=== PATIENT | female | born 1965 | race Caucasian/White ===

== ENCOUNTER → 2016-10-16 | Outpatient (CLI) | payer OTHER ==
--- NOTE | ~2016-10-16 | PR ---
[place], [place] PROGRESS NOTE NAME: MARGIE LILLY [facility] #: [id number] UNIT #: [id number] ROOM: DOCTOR: NEMO Wade,ORALIA BIRTHDATE: [birth year] DOS: 10/16/2016 HBO THERAPY NOTE This is treatment #20. INDICATION: Osteoradionecrosis of the jaw. Treatment protocol is 2.5 SNOW with 90 minutes of oxygen and two 5-minute air breaks. Compression began at 1322. Treatment pressure was reached at 1333. Treatment length was 122 minutes. Decompression began at 1513 and ended at 1524. Vitals pre-HBO shows a blood pressure of 150/82, pulse of 84, respirations 16, temperature is 97.4. Post-HBO, the blood pressure is 172/90, pulse of 80, respirations 16, temperature 97.5. TEED scale is grade 0 bilaterally pre and post-HBO treatment. The patient tolerated the treatment well without adverse events. The patient had recent hardware removal vestibuloplasty on 10/10/2016. She has an NG tube in for nutrition and this is her first treatment after her recent surgery. I certify that I supervised this HBO treatment in accordance with Medicare guidelines. A trained emergency response team is readily available per hospital policies and procedures. Continue HBO therapy as ordered. Of note, the patient does have transient high blood pressure post-HBO treatment. We will continue to monitor this and she may need to have some mild blood pressure medication if this persists, although it is transient. We will continue to monitor carefully. ORALIA CHESTER MD CM:PNTRANS [id number] ORALIA CHESTER M.D. 10/17/16 0230 interface
== END ==
LOC: WOUNDCARE 08:14
DX: M27.2 Inflammatory conditions of jaws (principal)

== ENCOUNTER → 2016-10-17 | Outpatient (CLI) | payer OTHER ==
--- NOTE | ~2016-10-17 | PR ---
[place], [place] PROGRESS NOTE [id number] UNIT #: [id number] ROOM: DOCTOR: NEMO Wade,ORALIA BIRTHDATE: [birth year] DOS: 10/17/2016 This is treatment number 21. The protocol is 2.5 SNOW with 90 minutes of oxygen and two 5-minute air breaks. The indication is osteoradionecrosis of the jaw. Compression began at 1304. Treatment pressure was reached at 1315. Treatment length was 122 minutes. Decompression began at 1455 and ended at 1506. Compression rate down and decompression rate up was 2.0 PSI per minute. Vital pre-HBO shows a blood pressure of 134/66, pulse of 64, respirations 16, temperature is 97.5. Post-HBO, the blood pressure is 150/84, pulse of 80, respirations 16, temperature is 97.5. TEED scale is grade 0 bilaterally pre and post-HBO treatment. The patient tolerated the treatment well without adverse events. I certify that I supervised this HBO treatment in accordance with Medicare guidelines. A trained emergency response team is readily available per hospital policies and procedures. Continue HBO therapy as ordered. ORALIA CHESTER MD CM:PNTRANS [id number] ORALIA CHESTER M.D. 10/18/16 0314 interface
== END ==
LOC: WOUNDCARE 01:22
DX: M27.2 Inflammatory conditions of jaws (principal)

== ENCOUNTER → 2016-10-18 | Outpatient (CLI) | payer OTHER ==
--- NOTE | ~2016-10-18 | PR ---
[place], [place] PROGRESS NOTE NAME: MARGIE LILLY UNIT #: [id number] ROOM: DOCTOR: FELIX MCKENZIE DO BIRTHDATE: [birth year] DOS: 10/18/2016 HYPERBARIC PROCEDURE NOTE SUPERVISING PHYSICIAN: Felix Mckenzie DO SUBJECTIVE: The patient is scheduled for HBO treatment. The protocol is used for 90 minute treatment at 2.5 SNOW on 100% oxygen with both a 12 minute compression and decompression time interval with two 5-minute air breaks. Total treatment time 124 minutes. This is treatment #22. OBJECTIVE: VITAL SIGNS: Both pre and post vital signs were taken and reviewed and appeared stable. Exam completed pre and post-treatment. EARS: Canals clear. No evidence of blockage, edema, ear infection or barotraumas. NOSE: No rhinorrhea or bleeding. HEART: Regular. LUNGS: Clear to auscultation bilaterally. ASSESSMENT: 1. Osteoradionecrosis of jaw. 2. An uneventful hyperbaric oxygen treatment was completed. PLAN: The patient will continue current HBO treatment scheduled and protocol used. FELIX MCKENZIE DO CM:FRANCINE [phone] FELIX MCKENZIE DO 10/23/16 0348 interface
== END ==
LOC: WOUNDCARE 01:34
DX: M27.2 Inflammatory conditions of jaws (principal)

== ENCOUNTER → 2016-10-21 | Outpatient (CLI) | payer OTHER ==
--- NOTE | ~2016-10-21 | PR ---
[place], [place] PROGRESS NOTE NAME: MARGIE LILLY [facility] #: [id number] UNIT #: [id number] ROOM: DOCTOR: ORALIA CHESTER M.D. BIRTHDATE: [birth year] DOS: 10/21/2016 THIS IS AN HBO THERAPY NOTE This is treatment #23. The protocol is 2.5 SNOW with 90 minutes of oxygen and two 5-minute air breaks. Compression began at 1309. Treatment pressure was reached at 1321. Treatment length was 124 minutes. Decompression began at 1501 and ended at 1513. Treatment length was 124 minutes. Compression rate down and decompression rate up was 2.0 psi per minute. The indication was osteoradionecrosis of the jaw. This is treatment #23. The protocol is 2.5 SNOW with 90 minutes of oxygen and two 5-minute air breaks. OBJECTIVE: VITAL SIGNS: Pre-HBO shows a blood pressure of 160/82, pulse of 64, respirations 16, temperature 97.5. Post-HBO, the blood pressure is 154/90, pulse of 80, respirations 16, temperature is 97.4. TEED scale is grade 0 bilaterally pre and post-HBO treatment. The patient tolerated the treatment well without adverse events. I certify that I supervised this HBO treatment in accordance with Medicare guidelines. A trained emergency response team is readily available per hospital policies and procedures. Continue HBO therapy as ordered. ORALIA CHESTER MD CM:PNTRANS [id number] ORALIA CHESTER M.D. 10/22/16 0724 interface
== END ==
LOC: WOUNDCARE 03:43
DX: M27.2 Inflammatory conditions of jaws (principal)

== ENCOUNTER → 2016-10-23 | Outpatient (CLI) | payer OTHER ==
--- NOTE | ~2016-10-23 | PR ---
[place], [place] PROGRESS NOTE NAME: MARGIE LILLY [facility] #: [id number] UNIT #: [id number] ROOM: DOCTOR: NEMO Wade,ORALIA BIRTHDATE: [birth year] DOS: 10/23/2016 HBO THERAPY NOTE This is treatment #24. The protocol is 2.5 SNOW with 90 minutes of oxygen and two 5-minute air breaks. Compression began at 1309. Treatment pressure was reached at 1320. Treatment length was 122 minutes. Decompression began at 1500 and ended at 1511. The indication is osteoradionecrosis of jaw. Vitals pre-HBO shows a blood pressure of 140/66, a pulse of 86, respirations 16, temperature is 97.5. Post-HBO, the blood pressure is 130/72, pulse of 80, respirations 16, temperature is 97.4. TEED scale is grade 0 bilaterally pre and post-HBO treatment. The patient tolerated the treatment well without any adverse effects. I certify that I supervised this HBO treatment in accordance with Medicare guidelines. A trained emergency response team is readily available per hospital policies and procedures. Continue HBO therapy as ordered. ORALIA CHESTER MD CM:PNTRANS [phone] ORALIA CHESTER M.D. 10/24/16 0406 interface
== END ==
LOC: WOUNDCARE 01:23
DX: M27.2 Inflammatory conditions of jaws (principal)

== ENCOUNTER → 2016-11-01 | Outpatient (CLI) | payer OTHER ==
--- NOTE | ~2016-11-01 | PR ---
[place], [place] PROGRESS NOTE NAME: MARGIE LILLY [facility] #: [id number] UNIT #: [id number] ROOM: DOCTOR: FELIX MCKENZIE DO BIRTHDATE: [birth year] DOS: 11/01/2016 HYPERBARIC PROCEDURE NOTE SUPERVISING PHYSICIAN: Felix Mckenzie DO. SUBJECTIVE: The patient is scheduled for HBO treatment. Protocol was used for a 90-minute treatment at 2.0 SNOW and 100% oxygen with both a 13 minute compression and decompression time interval with two 5-minute air breaks. TOTAL TREATMENT TIME: 126 minutes. This is treatment #25. OBJECTIVE: GENERAL: Both pre and post-treatment vital signs were taken, reviewed, and appeared stable. Exam completed pre and post-treatment. EARS: Canals were clear with no evidence of blockage, edema, ear infection, or barotraumas. NOSE: No rhinorrhea or bleeding. HEART: Regular. LUNGS: Clear to auscultation bilaterally. ASSESSMENT: 1. Osteoradionecrosis of jaw. 2. An uneventful HBO treatment was completed. PLAN: The patient will continue current HBO treatment scheduled and protocol used. FELIX MCKENZIE DO CM:FRANCINE [phone] FELIX MCKENZIE DO 11/04/16 0857 interface
== END | disposition home or self-care (01) ==
LOC: WOUNDCARE 02:13
DX: M27.2 Inflammatory conditions of jaws (principal)

== ENCOUNTER → 2016-11-04 | Outpatient (CLI) | payer OTHER ==
--- NOTE | ~2016-11-04 | PR ---
[place], [place] PROGRESS NOTE [id number] UN[facility] #: [id number] ROOM: DOCTOR: NEMO Wade,ORALIA BIRTHDATE: [birth year] DOS: 11/04/2016 This patient comes in for her HBO therapy. This is treatment #26. INDICATION: Osteoradionecrosis of the jaw. The protocol is 2.5 SNOW with 90 minutes of oxygen and two 5-minute air breaks. Compression began at 12:42. Treatment pressure was reached at 12:53. Treatment length was 122 minutes. Decompression began at 15:33 and ended at 14:44. Compression rate down and decompression rate up is 2.0 psi per minute. Vitals pre-HBO include blood pressure of 118/70, pulse of 76, respirations 16, temperature is 97.5. Post-HBO, the blood pressure is 144/70, pulse of 80, respirations 16, temperature 97.5. TEED scale is grade 0 bilaterally pre and post-HBO treatment. The patient tolerated the treatment well without adverse events. I certify that I supervised this HBO treatment in accordance with Medicare guidelines. A trained emergency response team is readily available per hospital policies and procedures. Continue HBO therapy as ordered. ORALIA CHESTER MD CM:PNTRANS [phone] ORALIA CHESTER M.D. 11/05/16 0335 interface
== END ==
LOC: WOUNDCARE 01:35
DX: M27.2 Inflammatory conditions of jaws (principal)

== ENCOUNTER → 2016-11-05 | Outpatient (CLI) | payer OTHER ==
--- NOTE | ~2016-11-05 | PROC NOTE ---
[place], [place] PROCEDURE NOTE NAME: MARGIE LILLY UNIT #: [id number] ROOM: DOCTOR: ADDISON RODRIGUEZ DO BIRTHDATE: [birth year] DOS: 11/05/2016 SUBJECTIVE: The patient is here for her 27th of 40 total hyperbaric treatments ordered for osteoradionecrosis of the jaw. OBJECTIVE: PRE-THERAPY VITAL SIGNS: Blood pressure 118/80, pulse 80, respirations 16, temperature 97.5. POST-THERAPY VITAL SIGNS: Blood pressure 134/84, pulse 76, respirations 16, temperature 97.4. HEENT: Bilateral ear exams were unremarkable. The patient was supervised in the chamber for a total of 122 minutes. Treatment protocol was 2.5 SNOW with 90 minutes oxygen with two 5-minute air breaks. ASSESSMENT: 1. Osteoradionecrosis of the jaw. 2. Uneventful hyperbaric treatment. PLAN: The patient will return for her 28th treatment. ADDISON RODRIGUEZ DO CM:PROCNOTE:PROCEDURE NOTE [id number] ADDISON RODRIGUEZ DO
== END ==
LOC: WOUNDCARE 03:29
DX: M27.2 Inflammatory conditions of jaws (principal)

== ENCOUNTER → 2016-11-06 | Outpatient (CLI) | payer OTHER ==
--- NOTE | ~2016-11-06 | PR ---
[place], [place] PROGRESS NOTE [id number] UN[facility] #: [id number] ROOM: DOCTOR: NEMO Wade,ORALIA BIRTHDATE: [birth year] DOS: 11/06/2016 HBO THERAPY NOTE This is HBO treatment #28. The protocol is 2.5 SNOW with 90 minutes of oxygen and two 5-minute air breaks. INDICATION: Osteoradionecrosis of jaw. Compression began at 1311. Treatment pressure was reached at 1321. Decompression began at 1501 and ended at 1511. Vitals, pre-HBO shows a blood pressure of 126/84, pulse of 86, respirations 16, temp 97.5. Post-HBO, the blood pressure is 144/90, pulse of 88, respirations 16, temp is 97.4. TEED scale is grade 0 bilaterally pre and post-HBO treatment. The patient tolerated the treatment well without adverse events. I certify that I supervised this HBO treatment in accordance with Medicare guidelines. A trained emergency response team is readily available per hospital policies and procedures. Continue HBO therapy as ordered. ORALIA CHESTER MD CM:PNTRANS [phone] ORALIA CHESTER M.D. 11/07/16 0158 interface
== END ==
LOC: WOUNDCARE 03:50
DX: M27.2 Inflammatory conditions of jaws (principal)

== ENCOUNTER → 2016-11-07 | Outpatient (CLI) | payer OTHER ==
--- NOTE | ~2016-11-07 | PR ---
[place], [place] PROGRESS NOTE [id number] UN[facility] #: [id number] ROOM: DOCTOR: ORALIA CHESTER M.D. BIRTHDATE: [birth year] DOS: 11/07/2016 HBO THERAPY NOTE This is HBO treatment #29. INDICATION: Osteoradionecrosis of the jaw. Protocol is 2.5 SNOW with 90 minutes of oxygen and two 5-minute air breaks. Compression began at 1327. Treatment pressure was reached at 120. Decompression began at 1517 and ended at 1527. Vitals pre-HBO shows a blood pressure of 128/88, pulse of 84, respirations 16, temperature 97.4. Post-HBO, the blood pressure is 138/88, pulse of 72, respirations 16, temperature is 97.4. TEED scale is grade 0 bilaterally pre and post-HBO treatment. The patient tolerated the treatment well without adverse events. I certify that I supervised this HBO treatment in accordance with Medicare guidelines. A trained emergency response team is readily available per hospital policies and procedures. Continue HBO therapy as ordered. ORALIA CHESTER MD CM:PNTRANS [id number] ORALIA CHESTER M.D. 11/08/16 0753 interface
== END ==
LOC: WOUNDCARE 03:09
DX: M27.2 Inflammatory conditions of jaws (principal)

== ENCOUNTER → 2017-12-08 | Outpatient (CLI) | payer OTHER | END | disposition home or self-care (01) | LOC: WOUNDCARE 03:56 | DX: L59.8 Other specified disorders of the skin and subcutaneous tissue related to radiation (principal); M27.2 Inflammatory conditions of jaws; E78.5 Hyperlipidemia, unspecified; G43.909 Migraine, unspecified, not intractable, without status migrainosus; I10 Essential (primary) hypertension; F17.210 Nicotine dependence, cigarettes, uncomplicated; Z85.89 Personal history of malignant neoplasm of other organs and systems; Y63.2 Overdose of radiation given during therapy; Y78.1 Therapeutic (nonsurgical) and rehabilitative radiological devices associated with adverse incidents ==